=== PATIENT | male | born 1945 | race Caucasian/White ===

== ENCOUNTER 2017-03-31 15:56 | Emergency (ER) | payer OTHER, BC ==
[~2017-03-31] VITALS: Ht 170.2 cm; Wt 65.0 kg
[2017-03-31 16:10] VITALS: Ht 170.2 cm; Wt 65.0 kg
--- NOTE | 2017-03-31 16:19 | EMERGENCY ROOM VISIT NOTE ---
ED Visit Note First contact with patient: 16:15 Chief Complaint: "Cut on top of head". History of Present Illness: This patient is a 72-year-old male who presents to the Emergency Department for evaluation of their the private vehicle laceration. Patient sustained the laceration while attempting to secure a box overhead when it fell approximately 10 feet striking his head. He notes the blocks is light but is made of wood. He is on Eliqis. He denies any loss of consciousness, headache or any other neurologic deficit. They report a minimal amount of bleeding initially. They report no loss of consciousness. They deny any headache, visual disturbance, nausea, vomiting, or neck pain. Patient rates his current discomfort as a 1/10. Patient's Tetanus status is believed to be currently up-to-date. Medications: As noted below Allergies: None identified PMH: No pertinent SHx: Patient is from [place] and visiting family here. ROS: All pertinent positive and negative review of systems are appropriately documented in the History of Present Illness. Physical Exam: VITAL SIGNS - Vital signs and nursing notes were reviewed. Stable. GENERAL -72-year-old male appearing his stated age. Communicates well with provider and answers questions appropriately. SKIN - There is a 3 cm laceration noted on the superior most portion of the patient's head in the anterior posterior fashion with a small 1cm noted to the posterior right parietal region. On exam these appear to be abrasions/ superficial lacerations. No step-off deformity. No deep structures including vessels, musculature, or bony structures are appreciated. HEAD - Normocephalic. No Davis's Sign or Raccoon's Eyes. No depressed skull fractures palpable. EYES - PERRL with EOMI bilaterally. Without subconjunctival hemorrhage. No hyphema. EARS - No deformities of external structures noted on gross examination bilaterally. No blood from the external ear canals. NOSE - Midline and without cyanosis. No epistaxis or clear watery discharge noted. MOUTH/OROPHARYNX - Without perioral cyanosis. NECK - FROM assessed. No tenderness to palpation over the cervical spinous processes. LUNGS - Chest wall symmetric without accessory muscle use, intercostals retractions, or central cyanosis. Normal vesicular breath sounds CTA B/L. No wheezes, rales, or rhonchi appreciated. CARDIAC - RRR with S1/S2. No murmur, rubs, or gallops appreciated. EXTREMITIES - No gross deformities noted of the extremities.+5/5 strength noted in UE/LE bilaterally. NEUROLOGIC - Cranial nerves II through XII grossly intact. Sensory intact to light touch throughout. PSYCH - A&Ox3 and cooperates fully with examiner. Pt is very pleasant and interacts well with examiner. IMAGING: CT HEAD WITHOUT CONTRAST (CT) CLINICAL HISTORY: Head struck by wooden box, anticoagulated COMPARISON STUDY: No previous studies for comparison. TECHNIQUE: Axial CT of the brain is performed from the vertex to the skull base. IV contrast was not administered for this examination. A dose lowering technique was utilized adhering to the principles of ALARA. CT DOSE: 687.98 mGy.cm FINDINGS: No intra or extra-axial mass lesions are visualized. There is no CT evidence of acute cortical infarction. There is no evidence of midline shift. There is no acute hemorrhage. No calvarial fractures are visualized. There are patchy white matter hypodensities likely on a small vessel basis. There is no evidence of pathologic ventricular dilatation. There is no evidence of acute sinusitis IMPRESSION: No acute intracranial findings Electronically signed by: Travis Cervantes M.D. 03/31/2017 5:01 PM Dictated Date/Time: 03/31/2017 5:00 PM ED Course: Patient was seen and evaluated by myself. Patient had no focal neurological deficits. Patient's exam is otherwise unremarkable. Patient reports no headaches , visual disturbances, nausea, vomiting, or over-lethargy. Risks and benefits of performing primary wound closure versus no repair were discussed with the patient who verbalizes understanding. Verbal consent was obtained prior to performing the procedure. He has presents was today anticoagulated on Eliquis, with a wooden box fell approximately 10 feet striking his head. Secondary to this mechanism of injury will recommend a noncontrasted CT scan of the patient' s head. Results as above. After he came back from CT scan, the region was cleansed with normal saline and it was evident that it did gape with traction. 3 cc of 1% buffered lidocaine was used to anesthetize the 3cm scalp laceration. Once proper anesthetization was established, the wound was further examined and demonstrated no deep involvement. The wound was copiously irrigated with normal saline. The wound was closed using 5 stewart with the wound edges being well approximated. Patient tolerated the procedure well. No complications were met. The wound was cleansed and dressed with a Bacitracin dressing. Patient educated on worrisome symptoms for return visit to the Emergency Department. Patient discharged to home in good condition. He is to follow up for the patchy white matter hypodensities on a small vessel basis. Current/Historical Medications Scheduled Budesonide/Formoterol Fumarate (Symbicort 80/4.5 Inhaler), 2 PUFFS INH BID Fluticasone Propionate (Nasal) (Flonase Allergy Relief), 1-2 SPRAYS INH QAM Pravastatin (Pravachol ), 80 MG PO HS [Elliquis], 5 MG PO BID Allergies Coded Allergies: No Known Allergies (Unverified , 03/31/17) Vital Signs Date Time Temp Pulse Resp B/P (MAP) Pulse Ox O2 Delivery O2 Flow Rate FiO2 03/31/17 17:36 36.9 63 18 139/83 98 03/31/17 16:10 36.9 63 20 141/82 97 Room Air Departure Information Impression Primary Impression: Laceration Dispostion Home / Self-Care Condition GOOD Referrals No Doctor, Assigned (PCP) Patient Instructions My [facility] Additional Instructions Discharge Instructions: You have received 5 stewart on your head. These stewart are NOT dissolvable and WILL need to be removed by a health care provider in 7-10 days. You can return to the Emergency Department or contact your Primary Care Provider to have these stewart removed. Proper wound care is essential for adequate wound healing and infection prevention. You can shower and clean the wound with soap and water. Do scour over the wound, pat dry with a towel. Do not submerse the wound until the stewart have been removed. You can use an antibiotic ointment with a dressing over the wound for the next 3-4 days. After this time you may leave the wound dry and open to the air. If crust develops over the wound you can use a Q-tip to apply a 1:1 peroxide:water solution to clean the wound. Look for signs of infection of the wound including: increased pain, swelling, foul discharge, streaking, or increased temperature. If any of these are noticed you should return to the Emergency Department for further assessment and treatment. As with any laceration you may have received nerve damage to the surrounding tissues. This damage may or may not be permanent. For pain control, you can use the following [id number]-[id number] medicines (if >12 yo): - Regular strength (325mg/tab) Tylenol (acetaminophen) 2 tabs every 4-6 hours as needed. Do not exceed 12 tablets in a 24 hour period. Avoid taking more than 3 grams (3000 mg) of Tylenol per day. This includes any other sources of acetaminophen you may take on a regular basis. - Regular strength (200 mg/tab) Advil (ibuprofen) 1-2 tabs every 4-6 hours as needed. Do not exceed a dose of 3200 mg per day. Return to the emergency department if your symptoms worsen despite treatment course outlined above. CT HEAD WITHOUT CONTRAST (CT) CLINICAL HISTORY: Head struck by wooden box, anticoagulated COMPARISON STUDY: No previous studies for comparison. TECHNIQUE: Axial CT of the brain is performed from the vertex to the skull base. IV contrast was not administered for this examination. A dose lowering technique was utilized adhering to the principles of ALARA. CT DOSE: 687.98 mGy.cm FINDINGS: No intra or extra-axial mass lesions are visualized. There is no CT evidence of acute cortical infarction. There is no evidence of midline shift. There is no acute hemorrhage. No calvarial fractures are visualized. There are patchy white matter hypodensities likely on a small vessel basis. There is no evidence of pathologic ventricular dilatation. There is no evidence of acute sinusitis
[2017-03-31] MEDS ORDERED: LIDOCAINE/EPINEPHRINE 1% 20 ML VIAL INFIL STA (16:26)
[2017-03-31] MEDS ORDERED: ELLIQUIS PO (16:50)
[2017-03-31] MEDS ORDERED: FLUT0.15 INH (16:50)
[2017-03-31] MEDS ORDERED: PRAV20TA PO (16:50)
[2017-03-31] MEDS ORDERED: SYMIN/8045 INH (16:50)
--- NOTE | 2017-03-31 17:03 | DIAGNOSTIC IMAGING REPORT ---
CT HEAD WITHOUT CONTRAST (CT) CLINICAL HISTORY: Head struck by wooden box, anticoagulated COMPARISON STUDY: No previous studies for comparison. TECHNIQUE: Axial CT of the brain is performed from the vertex to the skull base. IV contrast was not administered for this examination. A dose lowering technique was utilized adhering to the principles of ALARA. CT DOSE: 687.98 mGy.cm FINDINGS: No intra or extra-axial mass lesions are visualized. There is no CT evidence of acute cortical infarction. There is no evidence of midline shift. There is no acute hemorrhage. No calvarial fractures are visualized. There are patchy white matter hypodensities likely on a small vessel basis. There is no evidence of pathologic ventricular dilatation. There is no evidence of acute sinusitis IMPRESSION: No acute intracranial findings Electronically signed by: Travis Cervantes M.D. 03/31/2017 5:01 PM Dictated Date/Time: 03/31/2017 5:00 PM
[2017-03-31 17:36] VITALS: BP 139/83; PULSE 63; TEMP 36.9; O2SAT 98
== END 2017-03-31 17:37 | disposition home or self-care (01) ==
LOC: C.EDB 15:57 → C.EDD 17:37
DX: S01.91XA Laceration without foreign body of unspecified part of head, initial encounter (principal); W17.89XA Other fall from one level to another, initial encounter